=== PATIENT | female | born 1970 | race Caucasian/White ===

== ENCOUNTER → 2020-01-28 | Outpatient (CLI) | payer MEDICAID | LOC: COL.RAD 10:24 | DX: E04.2 Nontoxic multinodular goiter (principal) ==

== ENCOUNTER 2020-04-08 07:24 | Day surgery (SDC) | payer MEDICAID ==
[~2020-04-08] VITALS: Ht 162.6 cm; Wt 106.3 kg
[2020-04-08 08:10] VITALS: BP 119/83; PULSE 78; TEMP 98.5
[2020-04-08] MEDS ORDERED: COZAAR100 MG PO (08:31)
[2020-04-08] MEDS ORDERED: TOPROL XL 25MG25 MG PO (08:32)
[2020-04-08] MEDS ORDERED: HYDROXYURE500 MG/CAP PO (08:33)
[2020-04-08] MEDS ORDERED: NOLVADEX 1010 MG/TAB PO (08:33)
[2020-04-08] MEDS ORDERED: ZOFRAN8 MG PO (08:33)
[2020-04-08] MEDS ORDERED: WELLBUTRIN XL150 MG PO (08:34)
[2020-04-08] MEDS ORDERED: CELEXA40 MG PO (08:34)
[2020-04-08] MEDS ORDERED: ATIVAN 1MG T1 MG/TAB PO (08:35)
[2020-04-08] MEDS ORDERED: SEROQUEL 1100 MG/TAB PO (08:35)
[2020-04-08] MEDS ORDERED: BENADRYL25 M2 PO (08:36)
[2020-04-08] MEDS ORDERED: SYMJEPI0.3 MG/0.3 IJ (08:37)
[2020-04-08] MEDS ORDERED: LIPITOR20 MG PO (08:38)
[2020-04-08] MEDS ORDERED: SINGULAIR 110 MG/TAB PO (08:38)
[2020-04-08] MEDS ORDERED: NEURONTIN600 MG/TAB PO (08:39)
[2020-04-08] MEDS ORDERED: FLOVENT 44MCG I13 GM IH (08:40)
[2020-04-08] MEDS ORDERED: ATROVENT I0.2 MG/1 M IH (08:41)
[2020-04-08] MEDS ORDERED: KEPPRA 500MG500 MG PO (08:41)
[2020-04-08] MEDS ORDERED: PREDNISONE10 MG PO (08:42)
[2020-04-08] MEDS ORDERED: TUDORZA IH (08:43)
[2020-04-08] MEDS ORDERED: SYNTHROID0.075 MG/T PO (08:43)
[2020-04-08 09:10] VITALS: BP 110/67; PULSE 68
--- NOTE | 2020-04-08 09:10 | NUR ---
Patient returns to bay 4 per cart and transfers from cart to recliner with two person assist. IV fluids continue to infuse. Call light in reach and allowed to rest.
[2020-04-08 09:25] VITALS: BP 114/72; PULSE 54
--- NOTE | 2020-04-08 09:25 | NUR ---
Assisted up to the bathroom and gait steady with use of wheeled walker. Returns to room and is eating toast, applesauce, and drinking juice. IV to INT.
[2020-04-08 09:40] VITALS: BP 114/86; PULSE 75
--- NOTE | 2020-04-08 09:40 | NUR ---
Tolerates toast and juice. No complaints of nausea or abdominal pain.
[2020-04-08 09:55] VITALS: BP 138/75; PULSE 60
--- NOTE | 2020-04-08 09:55 | NUR ---
Patient given dismissal instructions and signed. Verbalized understanding.
--- NOTE | 2020-04-08 09:55 | NUR ---
INT needle discontinued and patient dresses self.
--- NOTE | 2020-04-08 10:03 | NUR ---
Patient dismissed to home driven by friend and escorted to the front door by this RN and patient was using wheeled walker. Dismissal instructions in hand.
== END 2020-04-08 10:03 | disposition home or self-care (01) ==
LOC: SDCO 07:24
DX: Z12.11 Encounter for screening for malignant neoplasm of colon (principal); E66.9 Obesity, unspecified; Z68.41 Body mass index [BMI] 40.0-44.9, adult; Z79.899 Other long term (current) drug therapy; F31.9 Bipolar disorder, unspecified; F32.9 Major depressive disorder, single episode, unspecified; F41.9 Anxiety disorder, unspecified; M79.7 Fibromyalgia; I10 Essential (primary) hypertension; E03.9 Hypothyroidism, unspecified; G40.909 Epilepsy, unspecified, not intractable, without status epilepticus; J44.9 Chronic obstructive pulmonary disease, unspecified; D69.6 Thrombocytopenia, unspecified; G47.00 Insomnia, unspecified; E78.5 Hyperlipidemia, unspecified; G89.29 Other chronic pain; Z85.3 Personal history of malignant neoplasm of breast; Z91.041 Radiographic dye allergy status; Z88.8 Allergy status to other drugs, medicaments and biological substances; Z79.810 Long term (current) use of selective estrogen receptor modulators (SERMs); Z88.5 Allergy status to narcotic agent; Z80.3 Family history of malignant neoplasm of breast; Z80.0 Family history of malignant neoplasm of digestive organs; Z83.6 Family history of other diseases of the respiratory system; Z90.49 Acquired absence of other specified parts of digestive tract; Z90.710 Acquired absence of both cervix and uterus
CPT/HCPCS: J2405; J2550; J2704; J7030

== ENCOUNTER 2020-06-30 09:00 | Outpatient (RCR) | payer MEDICAID ==
[~2020-06-30 09:00] MED LIST: ATIVAN 1MG T1 MG/TAB PO; ATROVENT I0.2 MG/1 M IH; BENADRYL25 M2 PO; CELEXA40 MG PO; COZAAR100 MG PO; FLOVENT 44MCG I13 GM IH; HYDROXYURE500 MG/CAP PO; KEPPRA 500MG500 MG PO; LIPITOR20 MG PO; NEURONTIN600 MG/TAB PO; NOLVADEX 1010 MG/TAB PO; PREDNISONE10 MG PO; SEROQUEL 1100 MG/TAB PO; SINGULAIR 110 MG/TAB PO; SYMJEPI0.3 MG/0.3 IJ; SYNTHROID0.075 MG/T PO; TOPROL XL 25MG25 MG PO; TUDORZA IH; WELLBUTRIN XL150 MG PO; ZOFRAN8 MG PO
== END 2020-09-06 | disposition home or self-care (01) ==
LOC: WSST
DX: R13.12 Dysphagia, oropharyngeal phase (principal)

== ENCOUNTER → 2020-07-02 | Outpatient (CLI) | payer MEDICAID | LOC: ZCOL.LAB 15:39 | DX: Z20.828 Contact with and (suspected) exposure to other viral communicable diseases (principal) ==

== ENCOUNTER → 2020-11-25 | Outpatient (CLI) | payer MEDICAID | LOC: COL.RAD 07:27 | DX: E04.1 Nontoxic single thyroid nodule (principal) ==

== ENCOUNTER → 2021-08-25 | Outpatient (CLI) | payer MEDICAID | LOC: COL.RAD 07:00 | DX: M75.121 Complete rotator cuff tear or rupture of right shoulder, not specified as traumatic (principal) ==

== ENCOUNTER 2021-10-25 13:07 | Emergency (ER) | payer MEDICAID ==
[~2021-10-25] VITALS: Ht 162.6 cm; Wt 113.6 kg
[~2021-10-25 13:07] MED LIST changes: +BENTYL 10MG10 MG/CAP PO; +FLEXERIL 1010 MG/TAB PO; +SPIRIVA RESPIMAT4 GM IH; +TESSALON PERLE200 MG PO
[2021-10-25 13:14] VITALS: BP 129/84
[2021-10-25 13:57] LABS: HEMOGLOBIN 12.5 g/dl (12.5-16.0); MEAN CELL VOLUME 87 fl (80.0-100.0); MEAN CORPUSCULAR HEMOGLOBIN 28 pg (27-31); MEAN CORPUSCULAR HGB CONC 32 g/dl (33.0-37.0); MEAN PLATELET VOLUME 8.3 fl (7.4-10.4); PLATELET COUNT 398 K/mm3 (130-400); RED BLOOD COUNT 4.51 M/mm3 (4.10-5.30); REDCELL DISTRIBUTION WIDTH-CV 13.2 % (11.5-14.5)
[2021-10-25 14:14] LABS: ALANINE AMINOTRANSFERASE 31 U/L (0-55); ALBUMIN 3.6 gm/dL (3.5-5.0); ALKALINE PHOSPHATASE 70 U/L (40-150); ANION GAP 9 mmol/L (7-16); AST,SGOT 26 U/L (5-34); BILIRUBIN,TOTAL 0.2 mg/dL (0.2-1.2); BLOOD UREA NITROGEN 16 mg/dL (10-20); CARBON DIOXIDE 26 mmol/L (22-29); CHLORIDE 105 mmol/L (98-107); CREATININE, serum 0.82 mg/dL (0.57-1.11); GLUCOSE 154 mg/dL (70-99); POTASSIUM 3.9 mmol/L (3.5-4.5); SODIUM 140 mmol/L (136-145); TOTAL PROTEIN 7.2 gm/dL (6.2-8.1)
[2021-10-25 14:26] LABS: TROPONIN-I < 0.010 ng/mL (0.00-0.033)
[2021-10-25 14:48] LABS: LYMPHOCYTE 3 % (20.0-51.0); NEUTROPHILS 96 % (42.0-75.2); PLATELET ESTIMATE NORMAL (NORMAL)
[2021-10-25] MEDS ORDERED: LEVAQUIN 5500 MG/TA1 PO (16:01)
[2021-10-25 16:40] VITALS: PULSE 87; TEMP 98.5
== END 2021-10-25 16:45 | disposition home or self-care (01) ==
LOC: COL.ER 13:07
PROVIDERS: Personal Emergency Response Attendant
DX: R06.00 Dyspnea, unspecified (principal); J98.6 Disorders of diaphragm; Z88.2 Allergy status to sulfonamides
CPT/HCPCS: J2930; J7030

== ENCOUNTER 2021-10-27 09:04 | Emergency (ER) | payer MEDICAID ==
[~2021-10-27] VITALS: Ht 162.6 cm; Wt 68.2 kg
[~2021-10-27 09:04] MED LIST changes: +LEVAQUIN 5500 MG/TA1 PO
[2021-10-27 09:33] VITALS: TEMP 98.8
[2021-10-27 11:11] LABS: HEMATOCRIT 39.7 % (37.0-47.0); HEMOGLOBIN 12.5 g/dl (12.5-16.0); MEAN CELL VOLUME 88 fl (80.0-100.0); MEAN CORPUSCULAR HEMOGLOBIN 28 pg (27-31); MEAN CORPUSCULAR HGB CONC 32 g/dl (33.0-37.0); MEAN PLATELET VOLUME 8.5 fl (7.4-10.4); PLATELET COUNT 417 K/mm3 (130-400); RED BLOOD COUNT 4.53 M/mm3 (4.10-5.30); REDCELL DISTRIBUTION WIDTH-CV 13.4 % (11.5-14.5)
[2021-10-27 11:28] LABS: ALBUMIN 3.3 gm/dL (3.5-5.0); BILIRUBIN,TOTAL 0.2 mg/dL (0.2-1.2); CALCIUM 8.7 mg/dL (8.4-10.2); CREATININE, serum 0.75 mg/dL (0.57-1.11); POTASSIUM 4.3 mmol/L (3.5-4.5)
[2021-10-27 11:56] LABS: BAND 3 % (0-10); LYMPHOCYTE 13 % (20.0-51.0); METAMYELOCYTE 2 % (0-0); NEUTROPHILS 79 % (42.0-75.2)
[2021-10-27 11:57] LABS: MICROCYTOSIS 1+
[2021-10-27 11:58] LABS: ANISOCYTOSIS 1+; HYPOCHROMIA 1+; PLATELET ESTIMATE INCREASED (NORMAL)
[2021-10-27 13:55] VITALS: BP 149/97; PULSE 70
== END 2021-10-27 13:55 | disposition home or self-care (01) ==
LOC: COL.ER 09:04
PROVIDERS: Personal Emergency Response Attendant
DX: R06.1 Stridor (principal); Z88.8 Allergy status to other drugs, medicaments and biological substances; Z88.2 Allergy status to sulfonamides
CPT/HCPCS: J1100; J1940

== ENCOUNTER → 2022-01-05 | Outpatient (CLI) | payer MEDICAID | LOC: COL.RAD 12:00 | DX: R22.32 Localized swelling, mass and lump, left upper limb (principal) ==

== ENCOUNTER 2022-09-28 14:12 | Inpatient (IN) | payer MEDICAID ==
[~2022-09-28] VITALS: Ht 162.6 cm; Wt 122.2 kg
[~2022-09-28 14:12] MED LIST changes: +ANTIVERT 25MG25 MG PO; +ANUSOL HC CREAM30 GM TP; +B-12 500 MCG PO; +BENTYL 20MG20 MG/TAB PO; +FREESTYLE PREC1 EAC5 MC; +GLUCAGON EMERGEN1 M1 IM; +GLUCOSE TEST ST1 DEV MC; +HCTZ12.5TAB PO; +INSULIN PEN NE1 EAC1 MC; +KLOR-CON20 MEQ PO; +LEVEMIR FLEX100 U/ML SQ; +LIPITOR 40MG TA40 MG PO; +LOPRESSOR 225 MG/TAB PO; +LOPRESSOR 550 MG/TAB PO; +NOVOLOG FLEX100 U/ML SQ; +PROTONIX 40MG T40 MG PO; +TENEX PO; +TRELEGY ELLIPT1 EAC1 IH
[2022-09-28 14:47] LABS: BASO % 0.3 % (0.0-2.0); EOS % 0.1 % (0.0-4.0); GRAN # 7.3 K/mm3 (1.4-6.5); GRAN % 79.7 % (42.2-75.2); HEMATOCRIT 38.8 % (37.0-47.0); HEMOGLOBIN 12.2 g/dl (12.5-16.0); LYMPH # 1.4 K/mm3 (1.2-3.4); LYMPH % 14.8 % (20.0-51.0); MEAN CELL VOLUME 85 fl (80.0-100.0); MEAN CORPUSCULAR HEMOGLOBIN 27 pg (27-31); MEAN CORPUSCULAR HGB CONC 31 g/dl (33.0-37.0); MEAN PLATELET VOLUME 9.2 fl (7.4-10.4); MONO # 0.4 K/mm3 (0.1-0.6); MONO % 4.1 % (1.7-9.3); PLATELET COUNT 362 K/mm3 (130-400); RED BLOOD COUNT 4.55 M/mm3 (4.10-5.30); REDCELL DISTRIBUTION WIDTH-CV 15.9 % (11.5-14.5)
[2022-09-28 15:11] LABS: ALANINE AMINOTRANSFERASE 86 U/L (0-55); ALBUMIN 3.2 gm/dL (3.5-5.0); ALKALINE PHOSPHATASE 77 U/L (40-150); ANION GAP 12 mmol/L (7-16); AST,SGOT 62 U/L (5-34); BILIRUBIN,TOTAL 0.5 mg/dL (0.2-1.2); BLOOD UREA NITROGEN 14 mg/dL (10-20); CALCIUM 9.3 mg/dL (8.4-10.2); CARBON DIOXIDE 24 mmol/L (22-29); CHLORIDE 102 mmol/L (98-107); CREATININE, serum 0.76 mg/dL (0.57-1.11); GLUCOSE 185 mg/dL (70-99); POTASSIUM 4.3 mmol/L (3.5-4.5); SODIUM 138 mmol/L (136-145); TOTAL PROTEIN 6.6 gm/dL (6.2-8.1)
[2022-09-28 15:24] LABS: TROPONIN-I < 0.010 ng/mL (0.00-0.033)
[2022-09-28 17:49] LABS: PROTHROMBIN TIME 11.3 SECONDS (9.7-12.8)
[2022-09-28 17:51] LABS: PARTIAL THROMBOPLASTIN TIME 25.6 SECONDS (26.0-37.0)
[2022-09-28] MEDS ORDERED: TESSALON PERLE200 MG PO (18:55)
[2022-09-28] MEDS ORDERED: PREDNISONE10 MG PO (18:57)
[2022-09-28] MEDS ORDERED: PROMETHAZINE12.5 M5 PO (18:58)
[2022-09-28] MEDS ORDERED: TENEX PO (19:01)
[2022-09-28] MEDS ORDERED: NEURONTIN600 MG/TAB PO (19:02)
[2022-09-28] MEDS ORDERED: NOLVADEX 1010 MG/TAB PO (19:02)
[2022-09-28 20:12] VITALS: BP 163/78; PULSE 76; TEMP 98.1
[2022-09-28] MEDS ORDERED: TRELEGY ELLIPT1 EACH IH (21:41)
[2022-09-29] VITALS (7 sets, daily range): BP systolic 135–175; BP diastolic 59–94; PULSE 69–82; TEMP 97.8–98.6
[2022-09-29] MEDS ORDERED: KLOR-CON20 MEQ PO (01:32)
[2022-09-29] MEDS ORDERED: TRELEGY ELLIPT1 EACH IH (01:32)
[2022-09-29] MEDS ORDERED: HYDROXYURE500 MG/CAP PO (01:34)
[2022-09-29] MEDS ORDERED: KEPPRA1000 MG PO (01:43)
[2022-09-29] MEDS ORDERED: PREDNISONE10 MG PO (02:07)
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
[2022-09-29 06:18] LABS: HEMATOCRIT 38.1 % (37.0-47.0); HEMOGLOBIN 12.3 g/dl (12.5-16.0); MEAN CELL VOLUME 83 fl (80.0-100.0); MEAN CORPUSCULAR HEMOGLOBIN 27 pg (27-31); MEAN CORPUSCULAR HGB CONC 32 g/dl (33.0-37.0); MEAN PLATELET VOLUME 9.1 fl (7.4-10.4); PLATELET COUNT 386 K/mm3 (130-400); REDCELL DISTRIBUTION WIDTH-CV 15.5 % (11.5-14.5)
[2022-09-29 06:40] LABS: CREATININE, serum 0.75 mg/dL (0.57-1.11); POTASSIUM 3.8 mmol/L (3.5-4.5)
[2022-09-29 07:34] LABS: ANISOCYTOSIS 1+; BAND 8 % (0-10); LYMPHOCYTE 21 % (20.0-51.0); NEUTROPHILS 62 % (42.0-75.2); PLATELET ESTIMATE NORMAL (NORMAL)
[2022-09-29] MEDS ORDERED: ELIQUIS 5MG PO (09:18)
--- NOTE | 2022-09-29 09:23 | NUR ---
Initial visit attempt: Patient sleeping, Student Development Advisor left "Prayer Card" for patient.
--- NOTE | 2022-09-29 16:01 | NUR ---
Supervisor Statement Clerks met with patient to discuss discharge planning with the assistance of verónica barbecue cook, [place] [id number]. Patient lives in [place] with her , Terry and sees Dr. Christian for primary care. Patient obtains medications from [facility] in [place] and uses a walker for ambulation. Patient has grab bars and a shower chair in her bathroom. Patient advised her assists her with ADLS like getting dressed and bathing. Patient is interested in having Home Health services and was open to using [facility] as they can accept Medicaid. SW contacted [facility] and faxed referral. SW updated Hospitalist. Discharge Plan: Home with HH
--- NOTE | 2022-09-29 16:45 | NUR ---
PATIENT AWAKE AND ALERT, RESTING IN BED. CALL LIGHT WITH IN REACH. NO NEEDS OR COMPLAINTS AT THIS TIME.
[2022-09-30 01:23] VITALS: BP 127/49
[2022-09-30 03:00] VITALS: BP 151/83; PULSE 66; TEMP 98.3
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
[2022-09-30 06:13] LABS: BASO % 0.2 % (0.0-2.0); EOS % 0.1 % (0.0-4.0); GRAN # 7.1 K/mm3 (1.4-6.5); GRAN % 66.1 % (42.2-75.2); HEMATOCRIT 38.5 % (37.0-47.0); HEMOGLOBIN 11.9 g/dl (12.5-16.0); LYMPH # 2.4 K/mm3 (1.2-3.4); LYMPH % 22.3 % (20.0-51.0); MEAN CELL VOLUME 86 fl (80.0-100.0); MEAN CORPUSCULAR HEMOGLOBIN 27 pg (27-31); MEAN CORPUSCULAR HGB CONC 31 g/dl (33.0-37.0); MEAN PLATELET VOLUME 9.1 fl (7.4-10.4); MONO # 1.1 K/mm3 (0.1-0.6); MONO % 10.5 % (1.7-9.3); PLATELET COUNT 418 K/mm3 (130-400); RED BLOOD COUNT 4.48 M/mm3 (4.10-5.30); REDCELL DISTRIBUTION WIDTH-CV 15.9 % (11.5-14.5)
[2022-09-30 06:28] LABS: CREATININE, serum 0.82 mg/dL (0.57-1.11); POTASSIUM 3.6 mmol/L (3.5-4.5)
[2022-09-30 07:42] VITALS: BP 143/89; PULSE 63; TEMP 98.3
--- NOTE | 2022-09-30 09:31 | NUR ---
Dr. Roach informs patient will discharge today with HH. Chairman And Chief Executive Officer confirms plan of care with Kd HUNTER and Frannie CastorenaExperimental Flight Test Mechanic. Chairman And Chief Executive Officer awaiting for discharge orders finalized to fax to [facility]; referral already placed. *Discharge plan: to home with [facility]*
[2022-09-30 11:29] VITALS: BP 149/83; PULSE 81; TEMP 98.3
[2022-09-30] MEDS ORDERED: DOXYCYCLINE 10100 MG PO (11:44)
[2022-09-30] MEDS ORDERED: CEFTIN500 MG PO (11:44)
[2022-09-30] MEDS ORDERED: ELIQUIS 5MG PO (11:46)
--- NOTE | 2022-09-30 14:18 | NUR ---
PATIENT DISCHARGE INSTRUCTIONS AND EDUCATION GIVEN WITH [place] [employer]. ALL QUESTIONS ANSWERED. DISCHARGE EDUCATION PRINTED IN [place] (UNABLE TO PRINT DISCHAGRE REGULAR PACKET IN [place].) IV AND TELE REMOVED. PATIENT AWAITING HUSBANDS ARRIVAL.
--- NOTE | 2022-09-30 14:22 | NUR ---
PATIENT LEFT IN STABLE CONDITION IN THE CARE O [facility] .
== END 2022-09-30 14:22 | disposition home or self-care (01) | DRG 176 ==
LOC: COL.ER 14:12 → MEDICAL 17:10
PROVIDERS: Physician Assistant; ADMIT Student in an Organized Health Care Education/Training Program
DX: I26.99 Other pulmonary embolism without acute cor pulmonale (principal); Z68.41 Body mass index [BMI] 40.0-44.9, adult; E78.5 Hyperlipidemia, unspecified; I10 Essential (primary) hypertension; J44.9 Chronic obstructive pulmonary disease, unspecified; D75.839 Thrombocytosis, unspecified; G40.909 Epilepsy, unspecified, not intractable, without status epilepticus; E03.9 Hypothyroidism, unspecified; F32.A Depression, unspecified; F41.9 Anxiety disorder, unspecified; E11.9 Type 2 diabetes mellitus without complications; E66.01 Morbid (severe) obesity due to excess calories; Z85.3 Personal history of malignant neoplasm of breast; Z79.4 Long term (current) use of insulin; Z88.6 Allergy status to analgesic agent; Z91.041 Radiographic dye allergy status; Z91.011 Allergy to milk products; Z88.5 Allergy status to narcotic agent; Z91.013 Allergy to seafood; Z88.2 Allergy status to sulfonamides; Z91.048 Other nonmedicinal substance allergy status; Z79.890 Hormone replacement therapy; Z92.21 Personal history of antineoplastic chemotherapy; Z86.718 Personal history of other venous thrombosis and embolism; Z79.01 Long term (current) use of anticoagulants; Z23 Encounter for immunization
CPT/HCPCS: OP; G0378; J1100; J1200; J1644; J1815; J2270; J7512; Q9967

== ENCOUNTER → 2022-12-05 | Outpatient (CLI) | payer MEDICAID ==
[~2022-12-05] MED LIST changes: +CEFTIN500 MG PO; +DOXYCYCLINE 10100 MG PO; +ELIQUIS 5MG PO; +KEPPRA1000 MG PO; +PAXLOVID CO-PA1 EACH PO; +PROMETHAZINE12.5 M5 PO; +TRELEGY ELLIPT1 EACH IH
== END ==
LOC: DIA.ED 10:28
DX: E11.9 Type 2 diabetes mellitus without complications (principal); Z79.4 Long term (current) use of insulin; I10 Essential (primary) hypertension
CPT/HCPCS: G0108

== ENCOUNTER → 2024-04-29 | Outpatient (CLI) | payer MEDICAID | LOC: COL.RAD 10:33 | DX: R22.1 Localized swelling, mass and lump, neck (principal) ==